=== PATIENT | male | born 1985 | race Hispanic/Latino ===

== ENCOUNTER 2024-04-05 18:32 | Emergency (ER) | payer SELFPAY ==
[2024-04-05 19:59] VITALS: RESP 18; TEMP 99.6; O2SAT 97
[2024-04-05 20:08] VITALS: BP 161/84; PULSE 80
[2024-04-05] MEDS ORDERED: BACIGUENT PACKET ONE (20:20)
--- NOTE | 2024-04-05 20:24 | ERPHSYRPT ---
- History of Present Illness Time Seen by Provider: 04/05/24 19:45 Source: patient Exam Limitations: no limitations Patient Subjective Stated Complaint: pt states he fell and hit his head Triage Nursing Assessment: pt ambulated into the er; pt is axo x4; c/o laceration; pt states 5/10 pain to head; laceration to rt eyebrown; laceration measure 1.5 cm x 0.2 cm to rt eyebrow; minimal bleeing present to rt eyebrow; left eye swelling and bruising; skin wahl, dry, warm; hypertensive; no respiratory distress present Physician History: 38 years old up-to-date with tetanus presented in the ER with chief complaint of fall and a laceration to the right eyebrow area. Patient apparently was on steps, slipped and hit handrail on the right eyebrow area and also the left lower lid/maxillary area. Patient has a laceration, bleeding initially but stopped with applying pressure. No difficulty movements of eyeballs. No numbness tingling or focal weakness. No loss of consciousness. Denies dizziness or lightheadedness. Minimal pain around the area of laceration. No neck pain. No injury anywhere else. 1.5 cm laceration right eyebrow's medial area with minimal oozing. Tender to touch. No step in deformity. Swelling/bruising left lower lid/maxilla area with no crepitus or step in deformity. Intact range of motion of eyeballs bilaterally. Pupils equal reacting to light and accommodation bilaterally. No cervical spine tenderness. No scalp hematoma. With the mechanism of fall, injury and clinical findings, do not think patient needs CT head. Discussed with patient in detail about signs symptoms of worse mahogany needing return to ER which he seems understanding. Laceration is repaired. Patient friend is used as bench repair technician. Allergies/Adverse Reactions: No Known Drug Allergies Allergy (Unverified 04/05/24 19:50) Home Medications: No Reportable Medications [No Reported Medications] 04/05/24 [History] Hx Tetanus, Diphtheria Vaccination/Date Given: (unknown) Travel Risk - International Travel Have you traveled outside of the country in past 3 weeks: No - Emerging Infectious Disease Are you exhibiting symptoms associated with any current EIDs: No - Review of Systems Constitutional: No Symptoms Eyes: Other (Laceration eyebrow) Ears, Nose, & Throat: Other Respiratory: No Symptoms Cardiac: No Symptoms Abdominal/Gastrointestinal: No Symptoms Musculoskeletal: Injury Skin: Skin Lesions Neurological: No Symptoms Endocrine: No Symptoms Hematologic/Lymphatic: No Symptoms - Past Medical History Pertinent Past Medical History: No - Past Surgical History Past Surgical History: Yes Musculoskeletal: Orthopedic Surgery Other Surgical History: rt hip surgery - Social History Smoking Status: Never smoker Exposure to second hand smoke: No Drug Use: none - Social Determinants of Health Will the patient participate in the screening: Declined to provide - Nursing Vital Signs Nursing Vital Signs: Initial Vital Signs Temperature 99.6 F 04/05/24 19:50 Pulse Rate 71 04/05/24 19:50 Respiratory Rate 18 04/05/24 19:50 Blood Pressure 150/87 04/05/24 19:50 O2 Sat by Pulse Oximetry 97 04/05/24 19:50 Pain Scale Pain Intensity 5 - Fontanelle Coma Score Best Eye Response (Fontanelle): (4) open spontaneously Best Verbal Response (Fontanelle): (5) oriented Best Motor Response (Tate): (6) obeys commands Tate Total: 15 - Physical Exam General Appearance: no apparent distress, alert Head Injury: contusions, lacerations, tenderness Eye Exam: PERRL/EOMI, eyes nml inspection ENT Exam: airway nml, No evidence of ENT injury, No dental injury Neck Exam: supple, trachea midline, full range of motion, normal alignment Respiratory/Chest Exam: normal breath sounds, respiratory distress Cardiovascular Exam: normal heart sounds, regular rate/rhythm Back Exam: normal inspection, normal range of motion Extremity Exam: normal range of motion Neurologic Exam: alert, oriented x 3, cooperative, utility technician II-XII nml as tested, normal mood/affect, nml cerebellar function, nml station & gait, sensation nml, No motor deficits Skin Exam: normal color SpO2 Interpretation: normal SpO2: 97 O2 Delivery: Room Air Procedures - Laceration/Wound Repair Right Frontal Time of Procedure: 20:24 Wound Location: Right Wound Length (cm): 1.5 Wound's Depth, Shape: into muscle, irregular, contused tissue Wound Explored: clean Irrigated: Yes Hibiclens Prep: Yes Anesthesia: 1% lidocaine w/ Epi Volume Anesthetic (ccs): 2 Suture Size/Type: 4-0, ethilon Number of Sutures: 3 Sterile Dressing Applied?: Yes - Progress Progress: improved Progress Note: 04/05/24 20:24 38 years old up-to-date with tetanus presented in the ER with chief complaint of fall and a laceration to the right eyebrow area. Patient apparently was on steps, slipped and hit handrail on the right eyebrow area and also the left lower lid/maxillary area. Patient has a laceration, bleeding initially but stopped with applying pressure. No difficulty movements of eyeballs. No numbness tingling or focal weakness. No loss of consciousness. Denies dizziness or lightheadedness. Minimal pain around the area of laceration. No neck pain. No injury anywhere else. 1.5 cm laceration right eyebrow's medial area with minimal oozing. Tender to touch. No step in deformity. Swelling/bruising left lower lid/maxilla area with no crepitus or step in deformity. Intact range of motion of eyeballs bilaterally. Pupils equal reacting to light and accommodation bilaterally. No cervical spine tenderness. No scalp hematoma. With the mechanism of fall, injury and clinical findings, do not think patient needs CT head. Discussed with patient in detail about signs symptoms of worsening needing return to ER which he seems understanding. Laceration is repaired. Patient friend is used as bench repair technician. Counseled pt/family regarding: diagnosis, need for follow-up Medical Desision Making - Independent Historian Additional History obtained from: Relative/friend - Diagnostic Testing Diagnostic test were ordered, analyzed, and reviewed by me: No - Risk of complications The pt has a mod risk of morbidity or mortality based on: Need for minor surgical intervention in patient with know risk factors - Departure Departure Disposition: Home Clinical Impression: Eyebrow laceration, Facial contusion Condition: Stable Critical Care Time: No Instructions: Laceration Repair With Stitches (DC), Head injury observation in adults Additional Instructions: Follow-up with primary care for reevaluation in 1 to 2 days. Intermittent ice application. Take Tylenol as needed. Return to ER for intractable headache, difficulty movements of eyeball, visual disturbance, numbness tingling focal weakness, intractable vomiting etc.
== END 2024-04-05 21:09 | disposition home or self-care (01) ==
LOC: ED 18:32
DX: S01.111A Laceration without foreign body of right eyelid and periocular area, initial encounter (principal); S00.83XA Contusion of other part of head, initial encounter; W19.XXXA Unspecified fall, initial encounter
CPT/HCPCS: 12011; 99281; A9270-GY